=== PATIENT | male | born 1995 | race Hispanic/Latino ===

== ENCOUNTER 2025-08-04 17:57 | Emergency (ER) | payer OTHER ==
[~2025-08-04] VITALS: Ht 185.4 cm; Wt 104.3 kg
[2025-08-04 18:40] LABS: IMMATURE GRANULOCYTE ABSOLUTE 0.03 K/uL (0-1); NUCLEATED RED BLOOD CELLS 0.0 % (0.0-0.19); PLATELET COUNT (AUTO) 258 K/uL (130-400); RED BLOOD CELL COUNT(AUTO) 6.24 MIL/uL (4.50-6.20); RED CELL DISTRIBUTION WIDTH 14.0 % (11.0-15.5); WHITE BLOOD COUNT (AUTO) 7.7 K/uL (4.8-10.8)
[2025-08-04 18:50] LABS: CREATININE 1.1 mg/dL (0.5-1.3); GLOMERULAR FILTR. RATE CALC 93.0 mL/min (>90); GLUCOSE,RANDOM 96.0 mg/dL (70-105); SODIUM SERUM 142.0 mmol/L (136-145); UREA NITROGEN, BLOOD 15.0 mg/dL (7-18)
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
--- NOTE | 2025-08-04 20:00 | NUR ---
PATIENT CARE ASSUMED AT THIS TIME.
[2025-08-04 20:10] VITALS: BP 158/86; PULSE 83; RESP 19; TEMP 98.3; O2SAT 97
[2025-08-04] MEDS ORDERED: METH-811 PO (21:07)
[2025-08-04] MEDS ORDERED: NAPR-1196 PO (21:07)
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
== END 2025-08-04 21:36 | disposition home or self-care (01) ==
LOC: EDH 17:57
DX: R07.81 Pleurodynia (principal); M54.9 Dorsalgia, unspecified; R10.9 Unspecified abdominal pain; V49.59XA Passenger injured in collision with other motor vehicles in traffic accident, initial encounter; Y93.89 Activity, other specified; Y92.89 Other specified places as the place of occurrence of the external cause; Y99.8 Other external cause status
CPT/HCPCS: 36415; 71101; 72040; 74176; 80048; 85025; 99284